=== PATIENT | male | born 1935 | race Caucasian/White ===

== ENCOUNTER 2023-03-17 21:36 | Outpatient (CLI) | payer MEDICARE, BC, SELFPAY | END 2023-03-17 21:37 | disposition home or self-care (01) | LOC: AMB 03-19 10:03 | PROVIDERS: PCP Family Medicine; Visit Provider Emergency Medicine | DX: R53.1 Weakness (principal); R50.9 Fever, unspecified | CPT/HCPCS: A0425; A0427 ==

== ENCOUNTER 2023-03-17 22:16 | Observation (INO) | payer MEDICARE, BC, SELFPAY ==
[2023-03-17 22:17] VITALS: BP 138/75; PULSE 66; RESP 16; TEMP 36.8; O2SAT 96
--- NOTE | 2023-03-17 22:44 | ED_ITS ---
HPI - General Adult General Date Seen: 03/17/23 Chief complaint: Weakness Stated complaint: weakness Time Seen by Provider: 03/17/23 22:21 Source: EMS Mode of arrival: EMS Limitations: other History of Present Illness HPI narrative: Patient is an 87-year-old who lives at home with his , has underlying Alzheimer's and does not provide significant history. When I asked him how he is doing he said fine. Report is from EMS of weakness today, unable to get out of the chair or ambulate, normally is able to get around with a walker. Reported fever of 100.7. He denies any cough, difficulty breathing, or pain anywhere, but I am not sure that he is reliable historian. Related Data Home Medications Medication Instructions Recorded Confirmed allopurinol 100 mg tablet 100 mg PO 3XW 03/17/23 03/17/23 cetirizine 10 mg tablet 10 mg PO DAILY 03/17/23 03/17/23 clotrimazole 1 % topical cream 1 applic topical BID PRN 03/17/23 03/18/23 finasteride 5 mg tablet 5 mg PO QAM 03/17/23 03/17/23 tamsulosin 0.4 mg capsule 0.8 mg PO DAILY 03/17/23 03/17/23 cholecalciferol (vitamin D3) 25 25 mcg PO DAILY 03/18/23 03/18/23 mcg (1,000 unit) capsule Allergies Allergy/AdvReac Type Severity Reaction Status Date / Time No Known Drug Allergies Allergy Verified 03/19/23 11:55 Review of Systems Status of ROS: Reports: unobtainable due to medical condition PFSH PFS Medical History (Updated 03/19/23 @ 13:38 by Ceci Brannon MD) BPH (benign prostatic hyperplasia) ?N40.0 - Benign prostatic hyperplasia without lower urinary tract symptoms (ICD-10) Dementia ?F03.90 - Unspecified dementia, unspecified severity, without behavioral disturbance, psychotic disturbance, mood disturbance, and anxiety (ICD-10) Gout ?M10.9 - Gout, unspecified (ICD-10) Social History What is your current living situation?: I presently have a place to live Problems where you live: no known problems Problems where you live details: N/a In the past 12 months, utilities in danger of being shut off: no In past 12 months, lack of transportation kept you from medical appts, meetings, work, or getting things needed for daily living: no In the past 12 mos, have been you worried that your food would run out before you had money to buy more?: never true In the past 12 mos, the food you bought just didn't last and you didn't have money to buy more?: never true Highest level of school completed/degree received: Bachelor's degree Smoking Status: Former smoker What tobacco products do you use: cigarettes Smoking quit date/years: >15 years ago and pipe How often do you have a drink containing alcohol: never How often do you have six or more drinks on one occasion: Never AUDIT-C Alcohol total score: 0 Non-prescribed substance use: denies use Caffeine: No How often does anyone, including family, friends and others, physically hurt you : never How often does anyone, including family, friends and others, insult or talk down to you: never How often does anyone, including family, friends and others, threaten you with harm: never How often does anyone, including family, friends and others, scream or curse at you: never service: Yes Exam Narrative: Exam Narrative: Vital signs as noted above. In general, an alert, nontoxic elderly male. Breathing easily. Head: Normocephalic, atraumatic. Eyes: Pupils are equal reactive. Extraocular movements are full. Conjunctivae are normal. ENT: Mucous membranes are moist. Throat is normal. Neck: Supple without lymphadenopathy. Heart: Regular rate and rhythm. No murmur or rub. Lungs: Clear bilaterally. No increased work of breathing, crackles or wheezes. Abdomen: Soft and nontender. No organomegaly. Extremities: Well perfused. No edema. No calf tenderness. Pulses intact. Neurologic: Patient is alert and conversant. Speech is fluent. Face is symmetric. Moves all extremities equally. Affect: Normal. Skin: Warm and dry. Well perfused. Const: Vital Signs, click to edit/add: Vital Signs - 24 hr 03/17/23 22:17 Temperature 98.3 F Pulse Rate [Pulse Oximeter] 66 Respiratory Rate 16 Blood Pressure [Ri ght Upper Arm] 138/75 Pulse Oximetry 96 Oxygen Delivery Me thod Room Air Documenting provider has reviewed patient's vital signs: yes Course Course ED Course: Patient presents for evaluation of generalized weakness, unable to provide a lot of additional history, no real findings on exam. Will evaluate broadly for infectious, cardiac or metabolic cause. EKG by my review shows a sinus rhythm, ventricular rate of 76, no acute ST segment changes. T-waves are flattened in the inferolateral leads. Patient has been alert, cooperative in without complaints while here. I did speak at length with his , who is his primary practice lead. She said in general they do pretty well, that he is agreeable and pretty easy to manage. She said today was a bad day, he just did not seem to be able to remember quite how the walk, seemed weaker than usual, and she said they got a temp of a 101.7? prior to calling 911. He did not receive any medication for fever and temperature was 98.3? here, so it is unclear to me whether he had a true fever. She does not report any other symptoms such as cough, vomiting, diarrhea, difficulty breathing, has not complained of any pain. She does feel chronically that he has trouble swallowing pills, that they seem to get kind of stuck and he coughs when he swallows pills. Workup here is pretty unrevealing. His white blood cell count is minimally elevated at 12, hemoglobin is 12.5, platelets 123. Metabolic panel is unremarkable, LFTs are really unremarkable as well, total bilirubin is 1.6 direct is normal and the remainder of his LFTs are normal. CRP is elevated at 4.7, lipase is less than 10. TSH is normal, UA is negative aside from trace ketones. He had 500 mL of normal saline here. COVID influenza and RSV are negative, troponin is 0.02. Plan will be to see how he does getting up and walking. If he sat is baseline, his says she feels that she probably can manage at home. If he still not able to walk as he normally would then he probably would benefit from hospitalization meche venegas broach the subject with her of possible need for of care, I suspect that she is not quite to the point of wanting that. He was unable to ambulate well with a walker, probably is not going to be able to manage at home right now so admit to the hospital. Did have some diarrhea later in his ER stay, will send sample for C diff. Chest x-ray pending as well. Spoke with [facility] staff and patient will be admitted to hospitalist service. Vital Signs Vital signs: Initial Vital Signs Temperature 98.3 F 03/17/23 22:17 Temperature Source Temporal Artery Scan 03/17/23 22:17 Pulse Rate 66 03/17/23 22:17 Pulse Strength 3+ Normal 03/17/23 22:17 Respiratory Rate 16 03/17/23 22:17 Blood Pressure 138/75 03/17/23 22:17 Blood Pressure Mean 96 03/17/23 22:17 Pulse Oximetry 96 03/17/23 22:17 Oxygen Delivery Method Room Air 03/17/23 22:17 Vital Signs Temperature 98.3 F 03/17/23 22:17 Pulse Rate 66 03/17/23 22:17 Respiratory Rate 16 03/17/23 22:17 Blood Pressure 138/75 03/17/23 22:17 Pulse Oximetry 96 03/17/23 22:17 Oxygen Delivery Method Room Air 03/17/23 22:17 Temperature 97.8 F 03/20/23 04:05 Pulse Rate 65 03/20/23 04:05 Respiratory Rate 18 03/20/23 04:05 Blood Pressure 147/104 H 03/20/23 04:05 Pulse Oximetry 96 03/20/23 04:05 Oxygen Delivery Method Room Air 03/20/23 04:05 Medications Administered Medications: Generic Name Dose Route Start Last Admin Trade Name Freq PRN Reason Stop Dose Admin Lactobacillus Acidophilus 1 tab 03/19/23 12:00 03/19/23 18:21 Lactobacillus Acidophilus 1 Tablet PO 1 tab TIDWM NATHAN Administration Melatonin 3 mg 03/18/23 00:34 03/18/23 21:43 Melatonin 3 Mg Tablet PO 3 mg HS PRN Administration Discontinued Medications Generic Name Dose Route Start Last Admin Trade Name Freq PRN Reason Stop Dose Admin Sodium Chloride 500 mls @ 500 mls/hr 03/17/23 22:31 03/18/23 00:22 0.9 % Sodium Chloride 500 Ml IV 03/17/23 23:30 Infused .Q1H ONE Infusion Medical Decision Making Lab Data Labs: Lab Results 03/17/23 03/17/23 03/17/23 Range/Units 22:31 22:32 22:45 WBC 12.16 H (4.50-11.00) K/uL RBC 4.12 L (4.30-5.90) m/uL Hgb 12.5 L (13.5-17.5) gm/dL Hct 37.6 (37.0-53.0) % MCV 91 (80-100) fL MCH 30 (26-34) pg MCHC 33 (32-36) gm/dL RDW Coeff of Thien 13.6 (11.5-15.5) % Plt Count 123 L (140-440) K/uL Neut % (Auto) 79.4 H (42.0-72.0) % Lymph % (Auto) 9.3 L (20-44) % [place] % (Auto) 9.5 (0.0-11.0) % Eos % (Auto) 0.2 (0.0-7.0) % Baso % (Auto) 0.2 (0.0-3.0) % Neut # (Auto) 9.70 H (1.7-7.0) K/uL Lymph # (Auto) 1.10 (0.90-2.90) K/uL [place] # (Auto) 1.20 H (0.00-0.90) K/UL Eos # (Auto) 0.00 (0.00-0.50) K/uL Baso # (Auto) 0.00 (0.00-0.30) K/uL Abs Immat Gran (auto) 0.20 (0.00-0.30) K/uL Imm/Tot Granulo (auto) 1.4 % Sodium 134 L (135-149) mmol/L Potassium 3.8 (3.6-5.1) mmol/L Chloride 100 (96-114) mmol/L Carbon Dioxide 26 (20-32) mmol/L Anion Gap 8 (7-15) mEq/L BUN 20 (7-30) mg/dL Creatinine 1.0 (0.5-1.5) mg/dL Estimated GFR 73 ml/min Glucose 114 (60-115) mg/dL Lactate 0.6 (0.5-1.9) mmol/L Calcium 8.5 (8.4-10.6) mg/dL Total Bilirubin 1.6 H (0.1-1.5) mg/dL Direct Bilirubin 0.0 (0.0-0.5) mg/dL AST 24 (12-35) U/L ALT 21 (4-50) U/L Alkaline Phosphatase 77 (40-150) U/L C-Reactive Protein 4.7 H (0.5-1.0) mg/dL Total Protein 7.0 (6.0-8.3) g/dL Albumin 3.9 (3.3-5.0) g/dL Lipase < 10 L (23-300) U/L TSH 2.500 (0.270-4.200) uIU/mL Urine Color (Yellow) Urine Appearance (Clear) Urine pH (5.0-8.5) Ur Specific [place] (1.000-1.030) Urine Protein (Negative) Urine Glucose (UA) (Negative) Urine Ketones (Negative) Urine Blood (Negative) Urine Nitrite (Negative) Urine Bilirubin (Negative) Urine Urobilinogen (0.2-1.0) Ur Leukocyte Esterase (Negative) Urine RBC (0-2) Urine WBC (0-5) Ur Squamous Epith Cells (None-Few) Urine Bacteria (None) Urine Mucus (None) SARS-CoV-2 (PCR) Negative SARS-CoV-2 (Negative) Influenza Type A (PCR) Negative PCR FLU A (Negative) Influenza Type B (PCR) Negative PCR FLU B (Negative) RSV (PCR) Negative PCR RSV (Negative) POC Troponin I 0.02 (0.01-0.04) ng/ml 03/17/23 Range/Units 23:50 WBC (4.50-11.00) K/uL RBC (4.30-5.90) m/uL Hgb (13.5-17.5) gm/dL Hct (37.0-53.0) % MCV (80-100) fL MCH (26-34) pg MCHC (32-36) gm/dL RDW Coeff of Thien (11.5-15.5) % Plt Count (140-440) K/uL Neut % (Auto) (42.0-72.0) % Lymph % (Auto) (20-44) % [place] % (Auto) (0.0-11.0) % Eos % (Auto) (0.0-7.0) % Baso % (Auto) (0.0-3.0) % Neut # (Auto) (1.7-7.0) K/uL Lymph # (Auto) (0.90-2.90) K/uL [place] # (Auto) (0.00-0.90) K/UL Eos # (Auto) (0.00-0.50) K/uL Baso # (Auto) (0.00-0.30) K/uL Abs Immat Gran (auto) (0.00-0.30) K/uL Imm/Tot Granulo (auto) % Sodium (135-149) mmol/L Potassium (3.6-5.1) mmol/L Chloride (96-114) mmol/L Carbon Dioxide (20-32) mmol/L Anion Gap (7-15) mEq/L BUN (7-30) mg/dL Creatinine (0.5-1.5) mg/dL Estimated GFR ml/min Glucose (60-115) mg/dL Lactate (0.5-1.9) mmol/L Calcium (8.4-10.6) mg/dL Total Bilirubin (0.1-1.5) mg/dL Direct Bilirubin (0.0-0.5) mg/dL AST (12-35) U/L ALT (4-50) U/L Alkaline Phosphatase (40-150) U/L C-Reactive Protein (0.5-1.0) mg/dL Total Protein (6.0-8.3) g/dL Albumin (3.3-5.0) g/dL Lipase (23-300) U/L TSH (0.270-4.200) uIU/mL Urine Color Yellow (Yellow) Urine Appearance Clear (Clear) Urine pH 5.5 (5.0-8.5) Ur Specific [place] 1.020 (1.000-1.030) Urine Protein Negative (Negative) Urine Glucose (UA) Negative (Negative) Urine Ketones Trace A (Negative) Urine Blood Negative (Negative) Urine Nitrite Negative (Negative) Urine Bilirubin Negative (Negative) Urine Urobilinogen 0.2 (0.2-1.0) Ur Leukocyte Esterase Negative (Negative) Urine RBC 0-2 (0-2) Urine WBC 0-2 (0-5) Ur Squamous Epith Cells Few (None-Few) Urine Bacteria Few A (None) Urine Mucus Few A (None) SARS-CoV-2 (PCR) (Negative) Influenza Type A (PCR) (Negative) Influenza Type B (PCR) (Negative) RSV (PCR) (Negative) POC Troponin I (0.01-0.04) ng/ml Discharge Plan Discharge Clinical Impression: Diarrhea, Weakness Patient Disposition: Admitted As Observation Condition: Stable
[2023-03-17 22:53] LABS: Lactate Sepsis w/Reflex* 0.6 mmol/L (0.5-1.9)
[2023-03-17 22:59] LABS: Basophils Percent Auto 0.2 % (0.0-3.0); Eosinophils Percent Auto 0.2 % (0.0-7.0); Hematocrit 37.6 % (37.0-53.0); Hemoglobin* 12.5 gm/dL (13.5-17.5); Immature Granulocytes Pct Auto 1.4 %; Lymphocytes Percent Auto 9.3 % (20-44); Mean Corpuscular HGB Conc 33 gm/dL (32-36); Mean Corpuscular Hemoglobin 30 pg (26-34); Mean Corpuscular Volume 91 fL (80-100); Monocytes Percent Auto 9.5 % (0.0-11.0); Neutrophils Percent Auto 79.4 % (42.0-72.0); Platelet Count* 123 K/uL (140-440); RDW Coefficient of Variation % 13.6 % (11.5-15.5); Red Blood Count 4.12 m/uL (4.30-5.90); White Blood Count* 12.16 K/uL (4.50-11.00)
[2023-03-17 23:01] LABS: Slide Review Reflex No
[2023-03-17 23:06] LABS: Troponin, Point-of-Care* 0.02 ng/ml (0.01-0.04)
[2023-03-17] MEDS: 0.9 % SODIUM CHLORIDE 500 ML 500 ML IV (23:13)
[2023-03-17 23:16] LABS: Albumin* 3.9 g/dL (3.3-5.0); Chloride* 100 mmol/L (96-114); Sodium* 134 mmol/L (135-149)
[2023-03-17 23:17] LABS: Potassium* 3.8 mmol/L (3.6-5.1)
[2023-03-17 23:19] LABS: Anion Gap 8 mEq/L (7-15); Carbon Dioxide* 26 mmol/L (20-32); Estimated Glomerular Filt Rate 73 ml/min
[2023-03-17 23:20] LABS: Alanine Aminotransferase* 21 U/L (4-50); Alkaline Phosphatase* 77 U/L (40-150); Aspartate Amino Transferase* 24 U/L (12-35); Bilirubin Total* 1.6 mg/dL (0.1-1.5); Blood Urea Nitrogen* 20 mg/dL (7-30); Calcium* 8.5 mg/dL (8.4-10.6); Glucose* 114 mg/dL (60-115)
[2023-03-17 23:23] LABS: C Reactive Protein* 4.7 mg/dL (0.5-1.0)
[2023-03-17 23:31] LABS: Lipase* < 10 U/L (23-300)
[2023-03-17 23:42] LABS: PCR FLU A Negative PCR FLU A (Negative); PCR FLU B Negative PCR FLU B (Negative); PCR RSV Negative PCR RSV (Negative)
[2023-03-17 23:46] LABS: SARS PCR* Negative SARS-CoV-2 (Negative)
[2023-03-17 23:58] LABS: Appearance Urine Clear (Clear); Bilirubin Urine Negative (Negative); Blood Urine Negative (Negative); Color Urine Yellow (Yellow); Glucose Urine Negative (Negative); Ketones Urine Trace (Negative); Leukocyte Esterase Urine Negative (Negative); Nitrite Urine Negative (Negative); Protein Urine Negative (Negative); Urobilinogen Urine 0.2 (0.2-1.0); pH Urine 5.5 (5.0-8.5)
[2023-03-18] VITALS (7 sets, daily range): BP systolic 127–173; BP diastolic 60–86; PULSE 65–76; RESP 16–20; TEMP 36.2–36.4; O2SAT 94–98; BMI 21.4
[2023-03-18 00:09] LABS: Bacteria Urine Few; Mucus Urine Few; RBC Urine 0-2 (0-2); Squamous Epithelial Cell Urine Few (None-Few); WBC Urine 0-2 (0-5)
--- NOTE | 2023-03-18 00:23 | ED.NURSE ---
Attempt made to road test patient on the unit. Required two assist to get him to stand and one assist when up. Requires a great deal of cueing.
--- NOTE | 2023-03-18 00:32 | CRLHL7_ITS ---
For Patients: As a result of the Century Cures Act, medical imaging exams and procedure reports are released immediately into your electronic medical record. You may view this report before your referring provider. If you have questions, please contact your health care provider. INDICATION: Weakness TECHNIQUE: Chest radiograph 1 view COMPARISON: None FINDINGS: Mediastinum: Prominence of the right hilum is noted. The heart silhouette is normal in size and morphology. Moderate elevation of the right hemidiaphragm is noted. Lung: Both lungs are unremarkable in appearance. No sign of pleural effusion seen. No pneumothorax is identified. Bone and Soft tissue: Unremarkable for age. IMPRESSION: 1. Prominence of the right hilum is noted. This may be a summation artifact from pulmonary vessels. Comparison with any prior outside imaging is recommended. If these cannot be obtained, evaluation with outpatient chest CT is recommended. Dictated by Gonsalo Allen MD @ 03/18/2023 12:58:23 AM Dictated by: Gonsalo Allen MD @ 03/18/2023 00:58:28 (Electronically Signed)
--- NOTE | 2023-03-18 01:05 | PC.NURSE ---
report given to Justina BARRETO on christiana Elizabeth sent to room 247 all belongings sent with patient
--- NOTE | 2023-03-18 01:41 | W.PM.TELEH&P ---
Telehealth- H&P: HPI History of Present Illness Date Seen: 03/18/23 Chief complaint: weakness Narrative: Jenaro Billings is seen as an Interactive Telehealth visit. Jenaro Billings is a 87 year old male with a past medical history notable for Alzheimer's dementia, gout, BPH who presented for generalized weakness. The patient lives at home with his who cares for him. At baseline he can ambulate with a walker, however on the day of admission he was too weak to get out of bed on his own. He was unable to ambulate even with assistance. His noticed a fever which she measured at 101.7 prior to admission. The patient can only give a limited history due to advanced dementia but denies any symptoms whatsoever. She feels like he is at his baseline. He denies any nausea or vomiting. He denies any abdominal pain. He denies any chest pain. Denies any shortness of breath. He denies any dysuria. In the ER he was noted to have a loose bowel movement. Work-up in the ER was unremarkable other than some evidence of dehydration based on UA with some ketones. Patient had mild leukocytosis with a white count of 12. Review of Systems Status of ROS: Reports: 10 or more systems reviewed and unremarkable except as noted in History and below Narrative: Review of systems somewhat unreliable due to advanced dementia [facility] Medical History (Updated 03/18/23 @ 01:50 by Evaristo Galarza MD) BPH (benign prostatic hyperplasia) ?N40.0 - Benign prostatic hyperplasia without lower urinary tract symptoms (ICD-10) Dementia ?F03.90 - Unspecified dementia, unspecified severity, without behavioral disturbance, psychotic disturbance, mood disturbance, and anxiety (ICD-10) Gout ?M10.9 - Gout, unspecified (ICD-10) Social History Non-prescribed substance use: denies use Meds Home Medications and Allergies Home Medications Medication Instructions Recorded Confirmed Type allopurinol 100 mg tablet 100 mg PO 3XW 03/17/23 03/17/23 History cetirizine 10 mg tablet 10 mg PO DAILY 03/17/23 03/17/23 History clotrimazole 1 % topical cream applic topical BID 03/17/23 History finasteride 5 mg tablet 5 mg PO QAM 03/17/23 03/17/23 History tamsulosin 0.4 mg capsule 0.8 mg PO DAILY 03/17/23 03/17/23 History Allergies Allergy/AdvReac Type Severity Reaction Status Date / Time No Known Drug Allergies Allergy Verified 03/17/23 23:04 Exam Narrative Exam Narrative: Physical Exam GENERAL: ?vital signs reviewed, well developed and nourished, in no distress, lying in bed HEENT: pupils are equal round and reactive to light, extraocular movements are grossly within normal limits and oral mucosa is moist. NECK: Supple without lymphadenopathy or thyromegaly according to nursing staff examination observation HEART: Regular rate and rhythm without any rubs, murmurs, or gallops. LUNGS: Clear to auscultation bilaterally with good air movement throughout ABDOMEN: Observation from nurse assisted exam, abdomen appears soft, nontender, and nondistended with Positive bowel sounds noted. EXTREMITIES: Strength and sensation is observed to be grossly within normal limits in the upper and lower extremities.? No focal strength deficit is observed. Slightly confused and tangential SKIN:? Observed warm and dry with color normal\ Const Vital Signs, click to edit/add: Vital Signs - 24 hr 03/17/23 22:17 Temperature 98.3 F Pulse Rate [Pulse Oximeter] 66 Respiratory Rate 16 Blood Pressure [Right Upper Arm] 138/75 Pulse Oximetry 96 Oxygen Delivery Method Room Air Hospitalist - H&P: Result Labs Labs: Short CBC 03/17/23 Range/Units 22:45 WBC 12.16 H (4.50-11.00) K/uL Hgb 12.5 L (13.5-17.5) gm/dL Hct 37.6 (37.0-53.0) % Plt Count 123 L (140-440) K/uL BMP 03/17/23 22:45 Sodium 134 L Potassium 3.8 Chloride 100 Carbon Dioxide 26 BUN 20 Creatinine 1.0 Glucose 114 Calcium 8.5 Liver Function 03/17/23 Range/Units 22:45 Total Bilirubin 1.6 H (0.1-1.5) mg/dL Direct Bilirubin 0.0 (0.0-0.5) mg/dL AST 24 (12-35) U/L ALT 21 (4-50) U/L Alkaline Phosphatase 77 (40-150) U/L Albumin 3.9 (3.3-5.0) g/dL Urine 03/17/23 Range/Units 23:50 Urine Color Yellow (Yellow) Urine Appearance Clear (Clear) Urine pH 5.5 (5.0-8.5) Ur Specific [place] 1.020 (1.000-1.030) Urine Protein Negative (Negative) Urine Glucose (UA) Negative (Negative) Assessment and Plan Assessment and plan (1) Weakness: Status: Acute (2) Diarrhea: Status: Acute (3) Gout: Status: Acute (4) Dementia: Status: Acute (5) BPH (benign prostatic hyperplasia): Status: Acute Plan Impaired mobility Generalized weakness OT PT evaluation Mild leukocytosis but no obvious infection 1 loose stool in the ER, will check for C. difficile Alzheimer's dementia without behavioral disturbance Delirium hygiene Gout Resume home medications when verified BPH Resume home medications when verified DNR/DNI confirmed with patient's prior Telehealth: Statement Statement Telehealth Visit: Today's History and Physical is provided via interactive telehealth by Evaristo Galarza MD.? Patient is located at [facility].? Provider is located at [facility].? Nursing staff assisted with the patient's exam. The visit being done today meets criteria for a telehealth visit and the patient or patient?s parent/guardian is aware the visit is a telehealth visit. Camera Start Time: 01:34 Camera End Time: 01:40
--- NOTE | 2023-03-18 11:31 | P.IMPN_ITS ---
Progress Note: A&P Assessment and plan (1) Weakness: Problem details: - multifactorial: Perhaps atypical UTI, viral illness, progression of Alzheimer's dementia - no chest pain or dyspnea - appreciate input from therapies - labs stable at this time, continue to follow - given abrupt change in status that preceded admission, recommend one more day in the hospital to evaluate for any other source of illness Status: Acute (2) Diarrhea: Status: Acute (3) Dementia: Problem details: - lives at home with , has caregivers in for 2 hours/day on T-F Status: Acute (4) BPH (benign prostatic hyperplasia): Status: Acute Plan - per above - likely home tomorrow - and daughter updated at bedside, questions answered Subjective Date Seen: 03/18/23 Interval history: Jenaro was admitted to the hospital yesterday after a fairly abrupt onset of weakness at home. Patient is unable to provide history given cognitive impairment; provides timeline during visit today. Patient had 2 instances yesterday where he was unable to get up; no significant trauma. Ambulance was called for lift assist after the 1st incident, but ER transfer deferred. After 2nd incident, did request ER visit given acute change in status. No obvious signs or symptoms of illness noted in the ER; urine culture pending. He had 1 episode of acute diarrhea, no further diarrhea overnight. C diff has been collected this morning and is pending. This morning, patient has eaten breakfast. He has no concerns of pain for the hospitalist team on specific questioning. Exam Narrative: Exam Narrative: GEN: Alert in sitting comfortably in bedside chair; cognitive impairment is evident CV: RRR, No concerning murmurs R: LCTA bilaterally without concerning wheezing, air movement adequate Ext: Thin, no concerning edema Neuro: No focal deficits Const: Vital Signs, click to edit/add: Vital Signs - 24 hr 03/17/23 22:17 03/18/23 02:20 03/18/23 03:00 Temperature 98.3 F 97.6 F Pulse Rate [Pulse Oximeter] 66 Pulse Rate [Right Pulse Oximeter] 75 76 Respiratory Rate 16 16 16 Blood Pressure [Ri ght Arm] 144/85 H 139/77 Blood Pressure [Ri ght Upper Arm] 138/75 Pulse Oximetry 96 95 96 Oxygen Delivery Me thod Room Air Room Air Room Air Labs Labs: Laboratory Results - last 24 hr 03/17/23 03/17/23 03/17/23 22:31 22:32 22:45 WBC 12.16 H RBC 4.12 L Hgb 12.5 L Hct 37.6 MCV 91 MCH 30 MCHC 33 RDW Coeff of Thien 13.6 Plt Count 123 L Neut % (Auto) 79.4 H Lymph % (Auto) 9.3 L [place] % (Auto) 9.5 Eos % (Auto) 0.2 Baso % (Auto) 0.2 Neut # (Auto) 9.70 H Lymph # (Auto) 1.10 [place] # (Auto) 1.20 H Eos # (Auto) 0.00 Baso # (Auto) 0.00 Abs Immat Gran (auto) 0.20 Imm/Tot Granulo (auto) 1.4 Sodium 134 L Potassium 3.8 Chloride 100 Carbon Dioxide 26 Anion Gap 8 BUN 20 Creatinine 1.0 Estimated GFR 73 Glucose 114 Lactate 0.6 Calcium 8.5 Total Bilirubin 1.6 H Direct Bilirubin 0.0 AST 24 ALT 21 Alkaline Phosphatase 77 C-Reactive Protein 4.7 H Total Protein 7.0 Albumin 3.9 Lipase < 10 L TSH 2.500 Urine Color Urine Appearance Urine pH Ur Specific [place] Urine Protein Urine Glucose (UA) Urine Ketones Urine Blood Urine Nitrite Urine Bilirubin Urine Urobilinogen Ur Leukocyte Esterase Urine RBC Urine WBC Ur Squamous Epith Cells Urine Bacteria Urine Mucus SARS-CoV-2 (PCR) Negative SARS-CoV-2 Influenza Type A (PCR) Negative PCR FLU A Influenza Type B (PCR) Negative PCR FLU B RSV (PCR) Negative PCR RSV POC Troponin I 0.02 03/17/23 23:50 WBC RBC Hgb Hct MCV MCH MCHC RDW Coeff of Thien Plt Count Neut % (Auto) Lymph % (Auto) [place] % (Auto) Eos % (Auto) Baso % (Auto) Neut # (Auto) Lymph # (Auto) [place] # (Auto) Eos # (Auto) Baso # (Auto) Abs Immat Gran (auto) Imm/Tot Granulo (auto) Sodium Potassium Chloride Carbon Dioxide Anion Gap BUN Creatinine Estimated GFR Glucose Lactate Calcium Total Bilirubin Direct Bilirubin AST ALT Alkaline Phosphatase C-Reactive Protein Total Protein Albumin Lipase TSH Urine Color Yellow Urine Appearance Clear Urine pH 5.5 Ur Specific [place] 1.020 Urine Protein Negative Urine Glucose (UA) Negative Urine Ketones Trace A Urine Blood Negative Urine Nitrite Negative Urine Bilirubin Negative Urine Urobilinogen 0.2 Ur Leukocyte Esterase Negative Urine RBC 0-2 Urine WBC 0-2 Ur Squamous Epith Cells Few Urine Bacteria Few A Urine Mucus Few A SARS-CoV-2 (PCR) Influenza Type A (PCR) Influenza Type B (PCR) RSV (PCR) POC Troponin I
[2023-03-18 12:51] LABS: C.Difficile Negative (Negative); CDIFFEPI 027 PRESUMPTIVE NEGATIVE (Negative)
--- NOTE | 2023-03-18 19:34 | PC.NURSE ---
End of shift [id number] - Pt alert, oriented to self and place. Pt demonstrated difficulty finding words and produced garbled speech during conversation with RN. Incontinent of bladder at baseline, continent of bowel during shift. Pt up to bathroom with walker and standby assist. Required education regarding safe use of walker. Pt redirected easily. Tolerating RA, regular diet, VSS. Family at bedside. Pt denies pain, dizziness, SOB. Redness noted on sacral/buttocks area, MD notified, barrier cream applied to affected area. Pt appears to be resting comfortably at end of shift.
[2023-03-18] MEDS: MELATONIN 3 MG TABLET PO (21:43)
[2023-03-19 00:40] VITALS: BP 156/105; PULSE 75; RESP 16; TEMP 36.4; O2SAT 96
[2023-03-19 03:50] VITALS: BP 139/74; PULSE 62; RESP 16; TEMP 36; O2SAT 97
--- NOTE | 2023-03-19 06:32 | PC.NURSE ---
Shift note [id number]: Pt noted to have baseline dementia and does not use call light when needing assistance. He is alert & oriented to self. Bed and chair alarms utilized. Pt has been frequently incontinent of bladder and continent of bowel. Pt noted to have had one medium loose BM last evening. Pt noted to have much difficulty understanding use of FWW when transferring- needing frequent staff instruction and demonstration of how to use. GB also used with transferring/ambulation. Pt able to safely transfer/ambulate with assist of 1. He has been denying pain when asked and was accepting of PRN Melatonin last evening. He is noted to have blanchable redness to intergluteal cleft which was reported by evening nurse. Staff continue to provide aris cares and apply protective cream to this area to promote healing. Redness likely caused by patient?s frequent urinary incontinence. Pt noted to become somewhat irritable when bed alarm sounded though alarm in place for pt safety as he is noted to be impulsive with getting up out of bed and does not remember to use call light when needing assistance. Staff applied Tubigrip sleeve over L forearm to cover SL IV as evening nurse reported that pt noted to be pick at things including edge of IV dressing.
[2023-03-19 06:56] LABS: Basophils Absolute Auto 0.03 K/uL (0.00-0.30); Basophils Percent Auto 0.4 % (0.0-3.0); Eosinophils Absolute Auto 0.08 K/uL (0.00-0.50); Hematocrit 38.3 % (37.0-53.0); Hemoglobin* 12.8 gm/dL (13.5-17.5); Immature Granulocytes Abs Auto 0.03 K/uL (0.00-0.30); Immature Granulocytes Pct Auto 0.4 %; Lymphocytes Percent Auto 14.7 % (20-44); Mean Corpuscular HGB Conc 33 gm/dL (32-36); Mean Corpuscular Hemoglobin 31 pg (26-34); Mean Corpuscular Volume 91 fL (80-100); Neutrophils Percent Auto 75.5 % (42.0-72.0); Platelet Count* 129 K/uL (140-440); RDW Coefficient of Variation % 13.6 % (11.5-15.5)
[2023-03-19 07:00] VITALS: BP 151/97; PULSE 59; RESP 20; TEMP 36; O2SAT 96
[2023-03-19 07:06] LABS: Slide Review Reflex No
[2023-03-19 07:07] LABS: Chloride* 101 mmol/L (96-114)
[2023-03-19 07:08] LABS: Albumin* 3.9 g/dL (3.3-5.0); Potassium* 3.8 mmol/L (3.6-5.1); Sodium* 139 mmol/L (135-149)
[2023-03-19 07:10] LABS: Creatinine* 0.9 mg/dL (0.5-1.5); Est. Creatinine Clearance* 48.01; Estimated Glomerular Filt Rate 83 ml/min
[2023-03-19 07:11] LABS: Alanine Aminotransferase* 20 U/L (4-50); Alkaline Phosphatase* 68 U/L (40-150); Anion Gap 10 mEq/L (7-15); Aspartate Amino Transferase* 25 U/L (12-35); Bilirubin Total* 0.9 mg/dL (0.1-1.5); Blood Urea Nitrogen* 18 mg/dL (7-30); Carbon Dioxide* 28 mmol/L (20-32); Glucose* 121 mg/dL (60-115); Total Protein* 7.1 g/dL (6.0-8.3)
[2023-03-19 07:12] LABS: Calcium* 8.8 mg/dL (8.4-10.6)
[2023-03-19 07:14] LABS: C Reactive Protein* 8.4 mg/dL (0.5-1.0)
--- NOTE | 2023-03-19 09:16 | CRLHL7_ITS ---
For Patients: As a result of the Century Cures Act, medical imaging exams and procedure reports are released immediately into your electronic medical record. You may view this report before your referring provider. If you have questions, please contact your health care provider. INDICATION: Left lower quadrant pain. TECHNIQUE: CT abdomen and pelvis acquired with 70 cc Isovue 370 IV contrast. COMPARISON: None. FINDINGS: Lower chest: Moderate severe multivessel atherosclerotic coronary calcifications. Liver: Incidental 3 cm simple benign left hepatic lobe cyst. Normal in size and attenuation. No suspicious masses. Gallbladder and bile ducts: Unremarkable. No stones or inflammation. No biliary dilatation. Pancreas: Unremarkable. No mass or inflammation. Spleen: Unremarkable. Normal in size. No masses. Adrenal glands: Unremarkable. No nodules. Kidneys: Incidental 4.4 cm simple benign exophytic right upper pole renal cortical cyst. No suspicious masses, stones, or hydronephrosis. GI tract: Acute uncomplicated distal sigmoid diverticulitis manifest by a pericolic inflammatory fat stranding associated with a hyperenhancing anterior sigmoid diverticulum just proximal to the sigmoid takeoff (series 2; image 128). These findings are present in association with extensive proximal diverticulosis of the sigmoid colon. There is an indirect left inguinal hernia containing a portion of the nondilated proximal sigmoid colon. A well-circumscribed homogeneous low-density finding abutting the anterior aspect of the 2nd segment of the duodenum which may represent a fluid-filled diverticulum. Normal appendix. Vasculature: Moderate aortoiliac atherosclerotic mural calcification. The abdominal aorta is normal in caliber. Mesenteric arteries are patent. Lymph nodes: No lymphadenopathy. Peritoneum/Abdominal Wall: Unremarkable. No sign of mass or infiltration. No free air or significant free fluid. Pelvis: The prostate is mildly enlarged measuring 48 mL. Bones: Unremarkable for age. IMPRESSION: Acute uncomplicated diverticulitis of the distal sigmoid colon. Indirect left inguinal hernia containing a short segment of the proximal sigmoid colon and fat. This hernia insinuates between the abdominal musculature at the left lower anterior abdominal wall. Extensive sigmoid diverticulosis. Incidental findings described above. Please note that all CT scans at this facility use dose modulation, iterative reconstruction, and/or weight-based dosing when appropriate to reduce radiation dose to as low as reasonably achievable. Dictated by Angel Luis Wing MD @ 03/19/2023 12:54:05 PM (Electronically Signed)
[2023-03-19 11:00] VITALS: BP 141/67; PULSE 59; RESP 20; TEMP 36.1; O2SAT 96
--- NOTE | 2023-03-19 13:16 | P.IMPN_ITS ---
Progress Note: A&P Assessment and plan (1) Diverticulitis: Problem details: - noted on 03/19 CT - mild, afebrile, tolerating po intake - given clinical stability and reassuring labs, reviewed plan of care with : will defer antibiotics at this time, treat with bland diet and continue to follow Status: Acute (2) Weakness: Problem details: - likely 2/2 diverticulitis - therapies following, close to baseline at this time Status: Acute (3) Diarrhea: Problem details: - negative C diff, + diverticulitis - probiotics + bland diet Status: Acute (4) Dementia: Problem details: - lives at home with , has caregivers in for 2 hours/day on T-F Status: Acute (5) BPH (benign prostatic hyperplasia): Status: Acute Plan - per above - SCDs for ppx - follow clinically x1 more day, likely home tomorrow if continues to improve and tolerates po - reviewed with RN granddaughter by phone, questions answered Subjective Date Seen: 03/19/23 Interval history: Jenaro was admitted to the hospital on 03/18 for weakness. He has had intermittent diarrhea over the past few days; C-Diff negative. Patient has been eating without complaints of nausea and no vomiting. Upon specific questioning, he does note mild discomfort in LLQ. Working with therapies, seems to be close to baseline at this time. Exam Narrative: Exam Narrative: GEN: Alert and sitting comfortably in bed, nontoxic CV: RRR, No concerning murmurs, rubs, or gallops R: LCTA bilaterally without concerning wheezing Ab: Soft and nondistended, + ttp in LLQ Ext: wwp, no concerning edema Skin: No concerning skin lesions or rashes on exposed skin Neuro: Nonfocal Psych: Cognitive impairment is evident, otherwise appropriate Const: Vital Signs, click to edit/add: Vital Signs - 24 hr 03/18/23 15:00 03/18/23 15:00 03/18/23 19:36 Temperature 97.1 F L 97.6 F Pulse Rate [Right Pulse Oximeter] 65 68 Respiratory Rate 16 20 16 Blood Pressure [Ri ght Arm] 156/78 H 146/86 H Pulse Oximetry 97 94 Oxygen Delivery Me thod Room Air Room Air 03/18/23 22:59 03/19/23 03:50 03/19/23 07:00 Temperature 97.1 F L 96.8 F L 96.8 F L Pulse Rate [Right Pulse Oximeter] 76 62 59 L Respiratory Rate 16 16 20 Blood Pressure [Ri ght Arm] 173/79 H 139/74 151/97 H Pulse Oximetry 96 97 96 Oxygen Delivery Me thod Room Air Room Air Room Air Labs Labs: Laboratory Results - last 24 hr 03/18/23 03/19/23 Unknown 05:56 WBC 7.90 RBC 4.20 L Hgb 12.8 L Hct 38.3 MCV 91 MCH 31 MCHC 33 RDW Coeff of Thien 13.6 Plt Count 129 L Neut % (Auto) 75.5 H Lymph % (Auto) 14.7 L [place] % (Auto) 8.0 Eos % (Auto) 1.0 Baso % (Auto) 0.4 Neut # (Auto) 6.00 Lymph # (Auto) 1.20 [place] # (Auto) 0.60 Eos # (Auto) 0.08 Baso # (Auto) 0.03 Abs Immat Gran (auto) 0.03 Imm/Tot Granulo (auto) 0.4 Sodium 139 Potassium 3.8 Chloride 101 Carbon Dioxide 28 Anion Gap 10 BUN 18 Creatinine 0.9 Estimated Creat Clear 48.01 Estimated GFR 83 Glucose 121 H Calcium 8.8 Total Bilirubin 0.9 AST 25 ALT 20 Alkaline Phosphatase 68 C-Reactive Protein 8.4 H Total Protein 7.1 Albumin 3.9 Stl C. diff Tox B Gene Negative Stl C. diff [id number] PRESUMPTIVE NEGATIVE
[2023-03-19 14:58] VITALS: BMI 20.6
[2023-03-19] MEDS: LACTOBACILLUS ACIDOPHILUS 1 TABLET 1 TAB PO (18:21)
[2023-03-19 19:00] VITALS: BP 147/87; PULSE 58; RESP 16; TEMP 36.6; O2SAT 97
--- NOTE | 2023-03-19 19:05 | PC.NURSE ---
End of Shift [id number] - Pt alert, oriented to self during shift. Pt experienced difficulty finding words and produced garbled speech during shift. Up to chair and bathroom with standby assist and walker. Easily reoriented, required frequent reinforcement of safe walker use. Pt incontinent of bowel and bladder at baseline. Tolerating RA, regular diet and fluids. VSS, afebrile during shift. Family at bedside. Pt appears to be resting comfortably at end of shift.
--- NOTE | 2023-03-19 22:39 | PC.NURSE ---
End of Shift: Patient pleasant and cooperative. Afebrile. Denies pain. Tolerating regular diet with no nausea. Up with SBA and walker.
[2023-03-20 04:05] VITALS: BP 147/104; PULSE 65; RESP 18; TEMP 36.6; O2SAT 96
[2023-03-20 06:32] LABS: Basophils Absolute Auto 0.03 K/uL (0.00-0.30); Basophils Percent Auto 0.5 % (0.0-3.0); Eosinophils Absolute Auto 0.14 K/uL (0.00-0.50); Eosinophils Percent Auto 2.3 % (0.0-7.0); Hematocrit 36.1 % (37.0-53.0); Hemoglobin* 12.1 gm/dL (13.5-17.5); Immature Granulocytes Abs Auto 0.02 K/uL (0.00-0.30); Immature Granulocytes Pct Auto 0.3 %; Lymphocytes Absolute Auto 1.22 K/uL (0.90-2.90); Lymphocytes Percent Auto 20.4 % (20-44); Mean Corpuscular HGB Conc 34 gm/dL (32-36); Mean Corpuscular Hemoglobin 30 pg (26-34); Mean Corpuscular Volume 91 fL (80-100); Monocytes Percent Auto 8.3 % (0.0-11.0); Neutrophils Absolute Auto 4.08 K/uL (1.7-7.0); Neutrophils Percent Auto 68.2 % (42.0-72.0); Platelet Count* 122 K/uL (140-440); RDW Coefficient of Variation % 13.6 % (11.5-15.5); Red Blood Count 3.98 m/uL (4.30-5.90); White Blood Count* 5.99 K/uL (4.50-11.00)
[2023-03-20 06:37] LABS: Slide Review Reflex No
[2023-03-20 07:00] VITALS: BP 158/73; PULSE 55; RESP 20; TEMP 35.9; O2SAT 94
--- NOTE | 2023-03-20 07:41 | PC.NURSE ---
Pt oriented to self only. Pt denies pain, chest pain, SOB, and N/V. Pt is up SBA with walker and gait belt. Pt set bed alarm off x6 throughout night. Pt easily reoriented and redirected. Pt has pink blanchable bottom, barrier cream applied.
[2023-03-20] MEDS: TAMSULOSIN HCL 0.4 MG CAPSULE 0.8 MG PO (08:56)
[2023-03-20] MEDS: LACTOBACILLUS ACIDOPHILUS 1 TABLET 1 TAB PO (08:56)
[2023-03-20] MEDS: FINASTERIDE 5 MG TABLET PO (08:56)
--- NOTE | 2023-03-20 09:53 | P.DS_ITS ---
DS: Providers Provider Date Seen: 03/20/23 Date of admission: 03/18/23 01:08 Primary care physician: Gino Galicia MD Admitting Clinician: Yahir Lawson MD Consults: PT, OT, Nutrition Attending Physician on discharge: Ceci Brannon MD Date of Discharge: 03/20/23 DS: Diagnosis Discharge Diagnosis (1) Diverticulitis: Status: Acute Problem details: - noted on 03/19 CT - reassuring WBC, afebrile, tolerated po intake during stay - given clinical stability and reassuring labs, antibiotic therapy deferred (2) Weakness: Status: Acute Problem details: - likely 2/2 diverticulitis - therapies followed during stay, at baseline physically (3) Diarrhea: Status: Acute Problem details: - negative C diff, + diverticulitis - probiotics + bland diet (4) Dementia: Status: Acute Problem details: - lives at home with , has caregivers in for 2 hours/day on T-F (5) BPH (benign prostatic hyperplasia): Status: Acute DS: Summary Hospital Course Hospital Course: Jenaro is a pleasant 87-year-old male who presented to the hospital on 03/18/23 with weakness and diarrhea. He was admitted to the hospital given symptoms. C diff negative. Given left lower quadrant abdominal pain, CT scan obtained on hospital day 1, exhibiting mild diverticulitis. Patient was tolerating p.o. intake, remained afebrile with normal white count; given reassuring clinical picture, antibiotics were deferred after discussion with . Jenaro and met with dietitian to discuss low fiber diet; he remained c linically stable and appropriate for discharge home on 03/20/23. Comorbidities noted above, remained stable. Status at Discharge Functional status at discharge: uses cane/walker Overall status at discharge: patient is back to baseline Time Spent with Patient Time attestation: Total time spent providing and/or coordinating discharge services: Time spent: Greater than 30 minutes Specific discharge activities: Medication reconciliation, patient and education Exam Narrative: Exam Narrative: GEN: Alert and pleasant, nontoxic, sitting comfortably in bedside chair in drinking coffee CV: RRR, No concerning murmurs R: LCTA bilaterally without concerning wheezing, air movement adequate Ab: Soft and nondistended, mild discomfort in left lower quadrant with palpation, improved Ext: wwp, no concerning edema Neuro: Nonfocal Psych: Cognitive impairment is evident, no agitation Const: Vital Signs, click to edit/add: Vital Signs - 24 hr 03/19/23 11:00 03/19/23 19:00 03/20/23 04:05 Temperature 96.9 F L 97.8 F 97.8 F Pulse Rate [Right Pulse Oximeter] 59 L 58 L 65 Respiratory Rate 20 16 18 Blood Pressure [Ri ght Arm] 141/67 H 147/87 H 147/104 H Pulse Oximetry 96 97 96 Oxygen Delivery Me thod Room Air Room Air Room Air 03/20/23 07:00 Temperature 96.7 F L Pulse Rate [Right Pulse Oximeter] 55 L Respiratory Rate 20 Blood Pressure [Ri ght Arm] 158/73 H Pulse Oximetry 94 Oxygen Delivery Me thod Room Air DS: Data Data Completed and Pending Labs on day of discharge: Labs from last 24 hours 03/20/23 05:52 WBC 5.99 RBC 3.98 L Hgb 12.1 L Hct 36.1 L MCV 91 MCH 30 MCHC 34 RDW Coeff of Thien 13.6 Plt Count 122 L Neut % (Auto) 68.2 Lymph % (Auto) 20.4 [place] % (Auto) 8.3 Eos % (Auto) 2.3 Baso % (Auto) 0.5 Neut # (Auto) 4.08 Lymph # (Auto) 1.22 [place] # (Auto) 0.50 Eos # (Auto) 0.14 Baso # (Auto) 0.03 Abs Immat Gran (auto) 0.02 Imm/Tot Granulo (auto) 0.3 C-Reactive Protein 5.0 H Discharge Plan Discharge Disposition: Home, Self-Care Date of Admission: 03/18/23 01:08 Attending Provider on Discharge: Ceci Brannon Primary Care Provider: Gino Galicia Condition: Stable Anticipated Discharge Date/Time: 03/20/23 09:41 Discharge Medications: Continued cetirizine 10 mg tablet 10 mg PO DAILY allopurinol 100 mg tablet 100 mg PO 3XW Patient Comments: mon, wed, fri tamsulosin 0.4 mg capsule 0.8 mg PO DAILY clotrimazole 1 % cream 1 applic topical BID PRN finasteride 5 mg tablet 5 mg PO QAM cholecalciferol (vitamin D3) 25 mcg (1,000 unit) capsule 25 mcg PO DAILY Discharge Orders: Discharge Order (Routine); Ordered 03/20/23 Ordered By: Ceci Brannon Additional Instructions: Low fiber diet for the next few days (can slowly advance as left sided abdominal pain improves). We need to hear from you with any increase in pain, fevers, or any other concerns. See Dr. Galicia sometime in the next week for hospital followup visit. Activity Level: Activity as Tolerated Discharge Diet: Low Fiber Follow Up Appointments: Gino Galicia MD [Primary Care Provider] - 03/27/23 2:30 pm ([facility], [place] for hospital f/u (diverticulitis)) Forms: [facility] Info Instructions
--- NOTE | 2023-03-20 11:51 | PC.NURSE ---
Discharge - Pt alert, oriented to self, cooperative. Experienced episodes of garbled speech and recent impairment present at baseline. Tolerating RA, therapeutic diet, regular fluids. VSS, afebrile. Up to chair and bathroom with standby assist and walker. Family at bedside. IV removed, catheter intact. Discharge paperwork signed, education given to pt and spouse with verbalized understanding from spouse. Discharge to home with spouse at approximately 11:30.
== END 2023-03-20 11:30 | disposition home or self-care (01) ==
LOC: ED 03-18 00:35 → MEDSURG 03-18 01:08
PROVIDERS: Family Medicine; Admitting Provider Family Medicine; Emergency Provider Emergency Medicine; PCP Family Medicine; Visit Provider Family Medicine
DX: K57.92 Diverticulitis of intestine, part unspecified, without perforation or abscess without bleeding (principal); R19.7 Diarrhea, unspecified; N40.0 Benign prostatic hyperplasia without lower urinary tract symptoms; G30.9 Alzheimer's disease, unspecified; F02.80 Dementia in other diseases classified elsewhere, unspecified severity, without behavioral disturbance, psychotic disturbance, mood disturbance, and anxiety; F05 Delirium due to known physiological condition; E86.0 Dehydration; M62.81 Muscle weakness (generalized); R10.32 Left lower quadrant pain; I49.8 Other specified cardiac arrhythmias; R79.82 Elevated C-reactive protein (CRP); D72.829 Elevated white blood cell count, unspecified; M10.9 Gout, unspecified; Z87.891 Personal history of nicotine dependence; Z11.52 Encounter for screening for COVID-19; Z66 Do not resuscitate
CPT/HCPCS: 36415; 71045; 74177; 80048; 80053; 80076; 81001; 83605; 83690; 84443; 84484; 85025; 86140; 87086; 87493; 87631; 93005; 96360; 97110; 97116; 97161; 97165; 97530; 97535; 99284; 99285; A9270; G0378; J7120; Q9967